=== PATIENT | female | born 1995 | race American Indian/Alaskan Native ===

== ENCOUNTER 2018-04-10 20:28 | Emergency (ER) | payer SELFPAY ==
[2018-04-10] MEDS ORDERED: NACL 0.9% 1000 ML 1,000 ML IV ONE (20:43)
[2018-04-10 21:15] LABS: Basophils # (Auto) 0.1 K/mm3 (0.0-0.1); Basophils % (Auto) 0.7 % (0.0-1.8); Eosinophils # (Auto) 0.1 K/mm3 (0.0-0.4); Eosinophils % (Auto) 0.9 % (0.0-4.3); Hematocrit 39.6 % (30.3-42.9); Lymphocytes # (Auto) 2.4 K/mm3 (1.2-5.4); Lymphocytes % (Auto) 33.6 % (13.4-35.0); Mean Corpuscular HGB Conc 33 % (30-34); Mean Corpuscular Hemoglobin 29 pg (28-32); Mean Corpuscular Volume 89 fl (79-97); Monocytes # (Auto) 0.7 K/mm3 (0.0-0.8); Monocytes % (Auto) 9.6 % (0.0-7.3); Platelet Count 237 K/mm3 (140-440); Red Blood Count 4.47 M/mm3 (3.65-5.03); Red Cell Distribution Width 12.9 % (13.2-15.2)
[2018-04-10 21:45] LABS: Amorphous Crystals,Urine Few; Bacteria,Urine 2+ /HPF (Negative); Bilirubin,Urine NEG (Negative); Blood,Urine NEG (Negative); Color,Urine Yellow (Yellow); Mucus,Urine 2+ /HPF; Protein,Urine <15 mg/dL mg/dL (Negative); Urobilinogen,Urine < 2.0 mg/dL (<2.0)
[2018-04-10 21:48] LABS: Alanine Aminotransferase 13 units/L (7-56); Albumin 4.1 g/dL (3.9-5); BUN/Creatinine Ratio 13; Blood Urea Nitrogen 8 mg/dL (7-17); Calcium 8.9 mg/dL (8.4-10.2); Hemolysis Index 6
[2018-04-10 21:52] LABS: Amphetamine Screen,Urine PRESUMPTIVE NEGATIVE; Benzodiazepines Screen,Urine PRESUMPTIVE NEGATIVE; Cocaine Screen,Urine PRESUMPTIVE NEGATIVE; Methadone Screen,Urine PRESUMPTIVE NEGATIVE; Opiate Screen,Urine PRESUMPTIVE NEGATIVE
[2018-04-10 22:13] LABS: Cannabinoid Screen,Urine PRESUMPTIVE POSITIVE
--- NOTE | 2018-04-11 00:48 | Ultrasound Report ---
FINAL REPORT EXAM: US OB TRANSVAGINAL HISTORY: preg, abd pain TECHNIQUE: Transvaginal imaging was obtained of the pelvis including Doppler interrogation of the uterus. FINDINGS: The uterus is anteverted measuring 9.3 cm x 4.6 cm x 6.9 cm. Within the uterus is a well-formed gestational sac which contains a yolk sac and pole. The crown-rump length of the pole is 14.7 mm corresponding to a 7 week 6 day IUP. The heart rate is 159 BPM. There is no evidence of subchorionic hemorrhage. There is minimal free fluid in cul-de-sac. The right ovary is normal size contour and echotexture measuring 1.4 cm x 1.1 cm x 1.1 cm. The left ovary measures 3.4 cm x 2.1 cm x 2.8 cm. Within the left ovary is a complex 2 cm cyst. IMPRESSION: Single viable IUP, 7 weeks 6 days. The heart rate is 159 BPM. 2 cm complex cyst left ovary most likely representing a corpus luteum cyst. Minimal free fluid in cul-de-sac.
--- NOTE | 2018-04-11 00:49 | Ultrasound Report ---
FINAL REPORT EXAM: US OB < = 14 WEEKS FETUS HISTORY: preg, abd pain TECHNIQUE: Transabdominal imaging was obtained of the pelvis with Doppler interrogation of the uterus. FINDINGS: The uterus is anteverted measuring 9.3 cm x 4.6 cm x 6.9 cm. Within the uterus is a well-formed gestational sac which contains a yolk sac and pole. The crown-rump length is 14.7 mm corresponding to a 7 week 6 day IUP. The heart is 159 BPM. There is no evidence of subchorionic hemorrhage. There is minimal free fluid in the cul-de-sac. The right ovary is normal size contour and echotexture measuring 1.4 cm x 1.1 cm x 1.1 cm. The left ovary measures 3.4 cm x 2.1 cm x 2.8 cm. Within the left ovary is a complex cyst measuring 2 cm in diameter. IMPRESSION: Single viable IUP, 7 weeks 6 days. The heart rate is 159 BPM. 2 cm complex cyst in left ovary compatible with corpus luteum cyst.
--- NOTE | 2018-04-11 01:04 | Emergency Department Report ---
HPI - General Chief Complaint: Abdominal Pain Time Seen by Provider: 04/10/18 21:46 - HPI HPI: 22-year-old female presents to the emergency department with complaint of a few weeks of some lower abdominal pain and lower back pain. The patient says "I think I might be ." She denies any vaginal bleeding or discharge, dysuria. She does have some occasional nausea but has not had any vomiting. The patient is she would be . She denies any other past medical history. She has not taken anything for her symptoms prior to presentation. With the lower back pain, patient denies any numbness or paresthesias, problems with bowel or bladder, or any neurological deficits. She does not have a primary care physician or [employer]. No recent travel or sick contacts at home. The patient also complains of some recent mood swings and some depression. She denies any suicidal or homicidal ideations. ED Past Medical Hx - Past Medical History Hx Asthma: Yes - Surgical History Past Surgical History?: No - Social History Smoking Status: Never Smoker Substance Use Type: Alcohol - Medications Home Medications: Home Medications Medication Instructions Recorded Confirmed Last Taken Type ALBUTEROL Inhaler [ProAir HFA 2 puff IH QID PRN #1 inhalation 07/23/15 Unknown Rx Inhaler] Albuterol Sulfate [Ventolin HFA] 2 puff IH Q4H PRN 07/23/15 07/23/15 Unknown History Cetirizine HCl [Allergy Relief] 10 mg PO DAILY #10 tablet 07/23/15 Unknown Rx Fluconazole [Diflucan TAB] 150 mg PO ONCE #1 tablet 07/23/15 Unknown Rx Fluticasone [Flonase] 1 spray NS QDAY #1 bottle 07/23/15 Unknown Rx Sulfamethoxazole/Trimethoprim 1 each PO BID #10 tablet 03/27/16 Unknown Rx [Bactrim DS TAB] Vit No.130/Iron/Folic 1 each PO QDAY #30 tablet 04/11/18 Unknown Rx [ Tablet] ED Review of Systems ROS: Stated complaint: ABD PAIN Other details as noted in HPI Comment: All other systems reviewed and negative Constitutional: denies: chills, fever Eyes: denies: eye pain, eye discharge, vision change ENT: denies: ear pain, throat pain Respiratory: denies: cough, shortness of breath, wheezing Cardiovascular: denies: chest pain, palpitations Gastrointestinal: abdominal pain, nausea. denies: diarrhea Genitourinary: denies: urgency, dysuria, discharge Musculoskeletal: back pain Skin: denies: rash, lesions Neurological: denies: headache, weakness, paresthesias Physical Exam - Physical Exam Vital Signs: Vital Signs 04/10/18 04/10/18 20:37 22:12 Temperature 99.2 F Pulse Rate 76 65 Respiratory 16 16 Rate Blood Pressure 110/59 92/54 O2 Sat by Pulse 99 100 Oximetry Physical Exam: GENERAL: The patient is well-developed well-nourished. HENT: Normocephalic. Atraumatic. Patient has moist mucous membranes. EYES: Extraocular motions are intact. NECK: Supple. Trachea is midline. CHEST/LUNGS: Clear to auscultation. There is no respiratory distress noted. HEART/CARDIOVASCULAR: Regular. There is no tachycardia. There is no murmur. ABDOMEN: Abdomen is soft, nontender. Patient has normal bowel sounds. There is no abdominal distention. SKIN: Skin is warm and dry. NEURO: The patient is awake, alert, and oriented. The patient is cooperative. The patient has no focal neurologic deficits. The patient has normal speech and gait. MUSCULOSKELETAL: There is no tenderness or deformity. There is no limitation range of motion. There is no evidence of acute injury. ED Course Vital Signs 04/10/18 04/10/18 20:37 22:12 Temperature 99.2 F Pulse Rate 76 65 Respiratory 16 16 Rate Blood Pressure 110/59 92/54 O2 Sat by Pulse 99 100 Oximetry ED Medical Decision Making - Lab Data Result diagrams: 04/10/18 20:46 04/10/18 20:46 - Radiology Data Radiology results: report reviewed EXAM: US OB TRANSVAGINAL HISTORY: preg, abd pain TECHNIQUE: Transvaginal imaging was obtained of the pelvis including Doppler interrogation of the uterus. FINDINGS: The uterus is anteverted measuring 9.3 cm x 4.6 cm x 6.9 cm. Within the uterus is a well-formed gestational sac which contains a yolk sac and pole. The crown-rump length of the pole is 14.7 mm corresponding to a 7 week 6 day IUP. The heart rate is 159 BPM. There is no evidence of subchorionic hemorrhage. There is minimal free fluid in cul-de- sac. The right ovary is normal size contour and echotexture measuring 1.4 cm x 1.1 cm x 1.1 cm. The left ovary measures 3.4 cm x 2.1 cm x 2.8 cm. Within the left ovary is a complex 2 cm cyst. IMPRESSION: Single viable IUP, 7 weeks 6 days. The heart rate is 159 BPM. 2 cm complex cyst left ovary most likely representing a corpus luteum cyst. Minimal free fluid in cul-de-sac. Transcribed By: RB Dictated By: DOMINIC WAN MD Electronically Authenticated By: DOMINIC WAN MD Signed Date/Time: 04/11/18 0043 - Medical Decision Making Patient came in with some lower abdominal and low back pain that appears to be going on for the past few weeks with concern for . She first had a positive urine and then a quantitative level of about 45,000. Ultrasound was done that shows a single viable intrauterine at about 7 weeks and 6 days with heart tones of about 159 bpm. the patient will be started on vitamins and has been given multiple [employer] referrals. The patient also came in discussing some issues with mood swings and some depression. She was seen by the mental health counselor who agrees that the patient does not appear to require a 1013 or any inpatient psychiatric treatment. She has been given some outpatient referrals in case she feels she needs some treatment and understands to return to the emergency department if there is any worsening of her mood swings, depression, or any thoughts of harming herself or others. Vital signs stable throughout her ED course. All of the patient's questions were answered. - Differential Diagnosis , UTI, fibroids, depression Critical Care Time: No Critical care attestation.: If time is entered above; I have spent that time in minutes in the direct care of this critically ill patient, excluding procedure time. ED Disposition Clinical Impression: Abdominal cramping, Mood swings Qualifiers: Weeks of gestation: less than 8 weeks Qualified Code(s): Z3A.01 - Less than 8 weeks gestation of Disposition: DC-01 TO HOME OR SELFCARE Is pt being admited?: No Condition: Stable Instructions: (ED), Abdominal Pain (ED) Prescriptions: Vit No.130/Iron/Folic [ Tablet] 1 each PO QDAY #30 tablet Referrals: [facility] [Primary Care Provider] - 3-5 Days [facility] [Provider Group] - 3-5 Days [facility] [Provider Group] - 3-5 Days [facility] [Provider Group] - 3-5 Days Time of Disposition: 01:04
[2018-04-11 01:11] VITALS: BP 100/59
== END 2018-04-11 01:11 | disposition home or self-care (01) ==
LOC: ED 20:28
DX: O26.891 Other specified pregnancy related conditions, first trimester (principal); R10.30 Lower abdominal pain, unspecified; J45.909 Unspecified asthma, uncomplicated; F39 Unspecified mood [affective] disorder; Z3A.01 Less than 8 weeks gestation of pregnancy
CPT/HCPCS: 36415; 76801; 76817; 80053; 80307; 81001; 84702; 84703; 85025; 99284; G0480; 80320